=== PATIENT | female | born 1990 | race Caucasian/White ===

== ENCOUNTER 2023-02-08 11:02 | Outpatient (CLI) | payer BC ==
[2023-02-08 12:24] LABS: Bilirubin Neg (Negative); Blood, Urine 10 (Negative); Clarity Clear (Clear); Glucose, Urine (Dipstick) Normal (Negative); Ketone, Urine Negative (Negative); Leukocyte Negative (Negative); Nitrite Negative (Negative); Protein, Urine (Dipstick) Negative (Neg-Trace); Urobilinogen Normal mg/dL (Less than 2); pH, Urine 6.5 (5.0-9.0)
[2023-02-08 12:50] LABS: BHCG - Serum Negative (NEGATIVE); Pregs Control Background? CLEAR/WHITE (CLR/WHITE); Pregs Control Bar Appear? YES (CONTROL BAR)
[2023-02-08 12:55] LABS: Hematocrit 41.4 % (34.9-44.5); Hemoglobin 13.8 g/dL (12.0-15.5); Mean Corpuscular HGB CONC 33.3 g/dL (32.0-36.0); Mean Corpuscular Hemoglobin 29.3 pg (27.0-33.0); Mean Corpuscular Volume 87.9 fl (81.6-98.3); Mean Platelet Volume 9.4 fl (7.4-10.4); Platelet Count 340 10x3/uL (150-450); RBC Distribution Width 12.2 % (11.5-14.5); Red Blood Cell (RBC) Count 4.71 10x6/uL (3.90-5.03); White Blood Cell (WBC) Count 6.8 10x3/uL (3.5-10.5)
== END 2023-02-08 11:03 | disposition home or self-care (01) ==
LOC: CSHLAB 11:02
PROVIDERS: ATTEND Obstetrics & Gynecology
DX: Z01.812 Encounter for preprocedural laboratory examination (principal); N87.1 Moderate cervical dysplasia; R87.810 Cervical high risk human papillomavirus (HPV) DNA test positive
CPT/HCPCS: 81003; 84703; 85027

== ENCOUNTER 2023-02-14 05:43 | Day surgery (SDC) | payer BC ==
[2023-02-08 12:20] VITALS: BMI 29.5
[2023-02-14] MEDS ORDERED: Silver Nitrate Application 1 EACH ONE (06:39)
[2023-02-14] MEDS ORDERED: Ferric Subsulfate (ASTRINGYN) 8 GM VIAL ONE (06:42)
[2023-02-14] MEDS ORDERED: CEFAZOLIN 2 GM VIAL ONE (07:02)
[2023-02-14] MEDS ORDERED: PROPOFOL 20 ML ONE (07:17)
[2023-02-14] MEDS ORDERED: fentaNYL 50 mcg/mL 1 mL Vial ONE (07:17)
[2023-02-14] MEDS ORDERED: Midazolam HCl 2 mg/2 ml Vial ONE (07:17)
[2023-02-14] MEDS ORDERED: Lidocaine 1% PF 5 ML VIAL ONE (07:20)
[2023-02-14] MEDS ORDERED: Ketorolac Tromethamine 30 MG/ML VIAL ONE (07:30)
[2023-02-14] MEDS ORDERED: Dexamethasone 4 mg/ml Vial ONE (07:30)
[2023-02-14] MEDS ORDERED: Ondansetron PF 4 MG/2 ML Vial ONE (07:30)
[2023-02-14] MEDS ORDERED: Esmolol 100 MG/10 ML VIAL ONE (07:41)
[2023-02-14] MEDS ORDERED: Potassium Iodide Solution 14 ML BOT ONE (09:30)
== END 2023-02-14 09:40 | disposition home or self-care (01) ==
LOC: CSHSDC 05:43
PROVIDERS: ATTEND Obstetrics & Gynecology
PROC: 0UBC7ZZ Excision of Cervix, Via Natural or Artificial Opening (ICD-10-PCS; principal; 2023-02-14)
DX: N87.0 Mild cervical dysplasia (principal); E03.9 Hypothyroidism, unspecified; Z88.5 Allergy status to narcotic agent
CPT/HCPCS: 88307; J1100; J1885; J2250; J2405; J2704; J3010

== ENCOUNTER 2023-11-21 15:28 | Outpatient (CLI) | payer BC ==
[2023-11-21 16:25] LABS: #Basophils 0.01 10x3/uL (0.0-0.2); #Eosinphils 0.11 10x3/uL (0.0-0.5); #Monocytes 0.45 10x3/uL (0.0-1.1); #Neutrophils 2.75 10x3/uL (1.5-8.4); %Basophils 0.2 % (0.0-2.0); %Eosinophils 1.8 % (0.0-6.0); %Monocytes 7.4 % (0.0-10.0); %Neutrophils 45.4 % (40.0-75.0); Hemoglobin 13.1 g/dL (12.0-15.5); Mean Corpuscular HGB CONC 34.5 g/dL (32.0-36.0); Mean Corpuscular Volume 87.2 fL (81.6-98.3); Mean Platelet Volume 8.7 fL (7.4-10.4); Platelet Count 325 10x3/uL (150-450); RBC Distribution Width 13.5 % (11.5-14.5); Red Blood Cell (RBC) Count 4.36 10x6/uL (3.90-5.03); White Blood Cell (WBC) Count 6.1 10x3/uL (3.5-10.5)
[2023-11-21 17:27] LABS: BHCG - Serum Negative (NEGATIVE); Pregs Control Background? CLEAR/WHITE (CLR/WHITE); Pregs Control Bar Appear? YES (CONTROL BAR)
[2023-11-21 17:30] LABS: ALT (SGPT) 32 U/L (8-55); AST (SGOT) 27 U/L (5-34); Albumin 4.2 g/dL (3.5-5.0); Alkaline Phosphatase 47 U/L (40-110); Anion Gap 12 mmol/L (10-20); BUN (Urea Nitrogen) 9 mg/dL (7.0-18.7); Bilirubin, Direct 0.2 mg/dL (0.1-0.3); Bilirubin, Total 0.6 mg/dL (0.2-1.2); Calc. Creatinine Clearance 0 mL/min (70-130); Calcium 9.9 mg/dL (7.8-10.44); Carbon Dioxide 25 mmol/L (22-29); Chloride 105 mmol/L (98-107); Estimated GFR 94; Glucose 70 mg/dL (70-105); Potassium 3.9 mmol/L (3.5-5.1); Protein, Total 7.1 g/dL (6.0-8.3); Sodium 138 mmol/L (136-145)
== END 2023-11-21 15:29 | disposition home or self-care (01) ==
LOC: CSHLAB 15:28
PROVIDERS: ATTEND Surgery
DX: Z01.812 Encounter for preprocedural laboratory examination (principal); K80.20 Calculus of gallbladder without cholecystitis without obstruction
CPT/HCPCS: 80048; 80076; 84703; 85025

== ENCOUNTER 2023-11-24 08:55 | Day surgery (SDC) | payer BC ==
[2023-11-21 15:50] VITALS: BMI 26.4
[2023-11-24] MEDS ORDERED: EPINEPHrine 1 MG/ML VIAL ONE (09:12)
[2023-11-24] MEDS ORDERED: Bupivacaine 0.25% HCL 30 ML VIAL ONE (09:12)
[2023-11-24] MEDS ORDERED: Midazolam HCl 2 mg/2 ml Vial ONE (10:04)
[2023-11-24] MEDS ORDERED: Indocyanine Green 25 MG/10 ML VIAL ONE (10:04)
[2023-11-24] MEDS ORDERED: fentaNYL 50 mcg/mL 1 mL Vial ONE ×3 (10:06→11:45)
[2023-11-24] MEDS ORDERED: SUCCINYLCHOLINE/SOD CL,ISO/PF 200 MG/10 ML SYRINGE FS ONE (10:06)
[2023-11-24] MEDS ORDERED: Rocuronium Bromide 10 MG/ML (10ML VIAL) ONE (10:07)
[2023-11-24] MEDS ORDERED: PROPOFOL 20 ML ONE ×2 (10:07)
[2023-11-24] MEDS ORDERED: SUGAMMADEX SODIUM 200 MG/2 ML VIAL ONE (10:09)
[2023-11-24] MEDS ORDERED: Sevoflurane 250 ML INH ANEST BOTTLE ONE (10:09)
[2023-11-24] MEDS ORDERED: CEFAZOLIN 2 GM VIAL ONE (10:13)
[2023-11-24] MEDS ORDERED: Ondansetron PF 4 MG/2 ML Vial ONE (10:33)
[2023-11-24] MEDS ORDERED: Dexamethasone 20 MG/5 ML VIAL ONE (10:33)
[2023-11-24] MEDS ORDERED: PHENYLEPHRINE-NS 100 MCG/ML 10 ML SYRINGE ONE (10:42)
[2023-11-24] MEDS ORDERED: Ketorolac Tromethamine 30 MG (1 mL) VIAL ONE (11:01)
[2023-11-24] MEDS ORDERED: Lidocaine 1% PF 5 ML VIAL ONE (11:06)
[2023-11-24] MEDS ORDERED: HYDROcodone/Acetaminophen 5/325 mg Tablet ONE (12:08)
== END 2023-11-24 13:20 | disposition home or self-care (01) ==
LOC: CSHSDC 08:55
PROVIDERS: ATTEND Surgery
PROC: 0FT44ZZ Resection of Gallbladder, Percutaneous Endoscopic Approach (ICD-10-PCS; principal; 2023-11-24)
DX: K80.10 Calculus of gallbladder with chronic cholecystitis without obstruction (principal); F41.9 Anxiety disorder, unspecified; Z79.899 Other long term (current) drug therapy; Z88.5 Allergy status to narcotic agent; Z98.890 Other specified postprocedural states
CPT/HCPCS: 88304; C1889; J0171; J0665; J1100; J1885; J2250; J2405; J2704; J3010